=== PATIENT | female | born 1955 | race Caucasian/White ===

== ENCOUNTER 2017-10-28 12:58 | Emergency (ER) | payer MEDICARE, MEDICAID ==
[~2017-10-28] VITALS: Ht 165.1 cm; Wt 72.7 kg
[~2017-10-28 12:58] MED LIST: CLON-527 PO; GABA600T2 PO; HYDR-3972 PO; METF500T PO; TRAZ150T78 PO; VENL150C2 PO
[2017-10-28] MEDS ORDERED: normal saline 1000ML IV soln IVB ONE (13:20)
[2017-10-28 14:00] VITALS: BP 101/71
[2017-10-28 14:15] LABS: BASOPHILS % (AUTO) 0.5 % (0-1); EOSINOPHILS # (AUTO) 0.2 X10'3 (0-0.9); EOSINOPHILS % (AUTO) 4.4 % (0-6); HEMATOCRIT 39.6 % (35.0-45.0); HEMOGLOBIN 13.9 g/dl (12.0-16.0); LYMPHOCYTES # (AUTO) 1.5 X10'3 (1.1-4.8); LYMPHOCYTES % (AUTO) 25.7 % (21-51); MEAN CORPUSCULAR HEMOGLOBIN 29.7 PG (27.0-31.0); MEAN CORPUSCULAR HGB CONC 35.2 % (33.0-36.5); MEAN CORPUSCULAR VOLUME 84.3 FL (78-98); MEAN PLATELET VOLUME 7.5 FL (7.4-10.4); MONOCYTES # (AUTO) 0.5 X10'3 (0-0.9); MONOCYTES % (AUTO) 8.6 % (2-12); NEUTROPHILS # (AUTO) 3.4 X10'3 (1.8-7.7); NEUTROPHILS % (AUTO) 60.8 % (42-75); PLATELET COUNT 119 X10'3 (140-440); RED CELL DISTRIBUTION WIDTH 13.9 % (11.5-14.5); WHITE BLOOD COUNT 5.7 X10'3 (4.5-11.0)
[2017-10-28 14:25] LABS: ALANINE AMINOTRANSFERASE 64 U/L (12-78); ALBUMIN 3.7 G/DL (3.4-5.0); ALBUMIN/GLOBULIN RATIO 0.9 (1.1-1.5); ALKALINE PHOSPHATASE 63 IU/L (46-116); ANION GAP 11 (8-16); ASPARTATE AMINO TRANSFERASE 35 U/L (10-37); BILIRUBIN,TOTAL 0.3 MG/DL (0.1-1.0); BLOOD UREA NITROGEN 21 MG/DL (7-18); CALCIUM 9.8 MG/DL (8.5-10.1); CHLORIDE 101 MMOL/L (99-107); GLUCOSE 336 MG/DL (70-104); MAGNESIUM 1.8 MG/DL (1.5-2.4); PHOSPHORUS 4.4 MG/DL (2.3-4.5); POTASSIUM 4.2 MMOL/L (3.5-5.1); SODIUM 137 MMOL/L (135-145); TOTAL CARBON DIOXIDE 24.8 MMOL/L (24-32); TOTAL PROTEIN 7.9 G/DL (6.4-8.2); eGFR 56 ML/MIN
[2017-10-28 16:06] LABS: CLARITY,URINE CLEAR (Clear); COLOR,URINE YELLOW (Yellow); GLUCOSE, URINE >=1000 mg/dl (Neg); KETONES,URINE NEGATIVE (Neg); LEUKOCYTE ESTERASE ,URINE SMALL (Neg); NITRITES, URINE POSITIVE (Neg); OCCULT BLOOD,URINE SMALL (Neg); PROTEIN,URINE TRACE mg/dl (Neg); UA COLLECTION TYPE NON-SPECIFIED; UROBILINOGEN,URINE 0.2 E.U/dL (0.2-1.0)
[2017-10-28 16:13] LABS: BACTERIA,URINE 2+ /HPF (Neg); RBC,URINE 0-2 /HPF (0-2); SQUAMOUS EPITHELIAL CELL,UR FEW /LPF (FEW); WBC,URINE 50-100 /HPF (0-4)
[2017-10-28] MEDS ORDERED: NITR100C6 PO (16:43)
[2017-10-28] MEDS ORDERED: CefTRIAXone 1000mg IM Kit (w/lidocaine diluent) IM ONE (16:45)
== END 2017-10-28 17:30 | disposition home or self-care (01) ==
LOC: ER 12:59
DX: E11.65 Type 2 diabetes mellitus with hyperglycemia (principal); N39.0 Urinary tract infection, site not specified; Z79.84 Long term (current) use of oral hypoglycemic drugs; Z88.8 Allergy status to other drugs, medicaments and biological substances
CPT/HCPCS: 36415; 71045; 80053; 81001; 82330; 82948; 83735; 83880; 84100; 84484; 85025; 87077; 87088; 87186; 96372; 99285; J0696

== ENCOUNTER 2018-01-11 15:59 | Emergency (ER) | payer MEDICARE, MEDICAID ==
[~2018-01-11] VITALS: Ht 152.4 cm; Wt 72.7 kg
[~2018-01-11 15:59] MED LIST changes: +NITR100C6 PO
[2018-01-11 16:49] LABS: BASOPHILS % (AUTO) 0.4 % (0-1); EOSINOPHILS # (AUTO) 0.1 X10'3 (0-0.9); EOSINOPHILS % (AUTO) 1.8 % (0-6); HEMATOCRIT 40.2 % (35.0-45.0); HEMOGLOBIN 13.9 g/dl (12.0-16.0); LYMPHOCYTES # (AUTO) 1.7 X10'3 (1.1-4.8); LYMPHOCYTES % (AUTO) 30.1 % (21-51); MEAN CORPUSCULAR HEMOGLOBIN 28.9 PG (27.0-31.0); MEAN CORPUSCULAR HGB CONC 34.7 % (33.0-36.5); MEAN CORPUSCULAR VOLUME 83.3 FL (78-98); MEAN PLATELET VOLUME 7.2 FL (7.4-10.4); MONOCYTES # (AUTO) 0.4 X10'3 (0-0.9); MONOCYTES % (AUTO) 7.7 % (2-12); NEUTROPHILS # (AUTO) 3.3 X10'3 (1.8-7.7); PLATELET COUNT 123 X10'3 (140-440); RED BLOOD COUNT 4.82 X10'6 (4.20-5.60); RED CELL DISTRIBUTION WIDTH 13.4 % (11.5-14.5); WHITE BLOOD COUNT 5.5 X10'3 (4.5-11.0)
[2018-01-11 17:00] LABS: PARTIAL THROMBOPLASTIN TIME 23 SECONDS (22-32); PROTHROMBIN TIME 10.1 SECONDS (9.0-12.0)
[2018-01-11 17:07] LABS: ALANINE AMINOTRANSFERASE 38 U/L (12-78); ALBUMIN 3.9 G/DL (3.4-5.0); ALKALINE PHOSPHATASE 69 IU/L (46-116); ANION GAP 11 (8-16); ASPARTATE AMINO TRANSFERASE 20 U/L (10-37); BILIRUBIN,TOTAL 0.4 MG/DL (0.1-1.0); BLOOD UREA NITROGEN 14 MG/DL (7-18); BUN/CREATININE RATIO 12.1 (6.6-38.0); CALCIUM 9.4 MG/DL (8.5-10.1); CHLORIDE 98 MMOL/L (99-107); CREATININE 1.16 MG/DL (0.40-0.90); ETHANOL < 0.010 GM/DL (0.0-0.010); GLUCOSE 437 MG/DL (70-104); POTASSIUM 4.4 MMOL/L (3.5-5.1); SODIUM 136 MMOL/L (135-145); TOTAL CARBON DIOXIDE 26.9 MMOL/L (24-32); TOTAL PROTEIN 7.7 G/DL (6.4-8.2); eGFR 47 ML/MIN
[2018-01-11 17:08] LABS: ACETAMINOPHEN < 2.0 UG/ML (10-30)
[2018-01-11 18:10] LABS: CLARITY,URINE SLIGHTLY CLOUDY (Clear); COLOR,URINE YELLOW (Yellow); GLUCOSE, URINE >=1000 mg/dl (Neg); KETONES,URINE NEGATIVE (Neg); LEUKOCYTE ESTERASE ,URINE NEGATIVE (Neg); NITRITES, URINE NEGATIVE (Neg); OCCULT BLOOD,URINE LARGE (Neg); PROTEIN,URINE NEGATIVE (Neg); UROBILINOGEN,URINE 0.2 E.U/dL (0.2-1.0)
[2018-01-11] MEDS ORDERED: normal saline 1000ML IV soln IVB ONE (18:10)
[2018-01-11] MEDS ORDERED: insulin regular, human 10 units/0.1 ml syringe SQ ONE (18:10)
[2018-01-11 18:11] LABS: UA COLLECTION TYPE CLN CATCH MIDSTREAM
[2018-01-11 18:19] LABS: URINE AMPHETAMINE SCREEN NEGATIVE (Neg); URINE BARBITUATE SCREEN NEGATIVE (Neg); URINE BENZODIAZEPINES SCREEN POSITIVE (Neg); URINE CANNABINOID SCREEN NEGATIVE (Neg); URINE COCAINE SCREEN NEGATIVE (Neg); URINE METHADONE SCREEN NEGATIVE (Neg); URINE OPIATE SCREEN POSITIVE (Neg); URINE PHENCYCLIDINE SCREEN NEGATIVE (Neg)
[2018-01-11 18:23] LABS: SQUAMOUS EPITHELIAL CELL,UR MODERATE /LPF (FEW)
[2018-01-11 18:24] LABS: BACTERIA,URINE FEW /HPF (Neg); RBC,URINE 50-100 /HPF (0-2); WBC,URINE 30-50 /HPF (0-4)
[2018-01-11 21:14] VITALS: BP 141/62
[2018-01-11] MEDS ORDERED: TRAZ150T78 PO (21:46)
[2018-01-11] MEDS ORDERED: METF500T PO (21:50)
[2018-01-11] MEDS ORDERED: CHOL10002 PO (21:50)
[2018-01-11] MEDS ORDERED: INSU100V30 SQ (21:50)
[2018-01-11] MEDS ORDERED: MULT-933 PO (21:56)
[2018-01-11] MEDS ORDERED: CLIN300C17 (21:56)
[2018-01-11] MEDS ORDERED: FLUO15OI15 TOP (21:56)
[2018-01-11] MEDS ORDERED: GABA-530 PO ×2 (21:56)
[2018-01-12] MEDS ORDERED: NPH,100V SQ (15:23)
[2018-01-21] MEDS ORDERED: VENL75CA61 PO (07:47)
[2018-01-21] MEDS ORDERED: TRAZ-146 PO (07:47)
[2018-01-21] MEDS ORDERED: VENL150C2 PO (07:47)
[2018-01-21] MEDS ORDERED: NPH,100V SQ (07:47)
[2018-01-21] MEDS ORDERED: CLON1TAB4 PO (07:47)
== END 2018-01-11 23:23 | disposition home or self-care (01) ==
LOC: ER 16:00
DX: F32.9 Major depressive disorder, single episode, unspecified (principal); E11.65 Type 2 diabetes mellitus with hyperglycemia; N39.0 Urinary tract infection, site not specified; F41.9 Anxiety disorder, unspecified; Z79.899 Other long term (current) drug therapy
CPT/HCPCS: 36415; 71045; 80053; 80305; 80320; 80329; 81001; 82948; 85025; 85610; 85730; 87088; 96360; 96372; 99285; J1815; J7030; 96361

== ENCOUNTER 2022-06-23 09:39 | Outpatient (CLI) | payer MEDICARE, MEDICAID ==
[2022-06-23] VITALS (18 sets, daily range): BP systolic 78–138; BP diastolic 43–97
[~2022-06-23 09:39] MED LIST changes: -CLON-527 PO; +CLON-528 PO; +GABA600T13 PO; -GABA600T2 PO; -HYDR-3972 PO; +HYDR-4353 PO; -METF500T PO; +MULT-933 PO; +NITR100C11 PO; -NITR100C6 PO; +NPH,100V SQ; +NPH,100V2 SQ; +PRAV10TA39 PO; +TRAZ-251 PO; -TRAZ150T78 PO; -VENL150C2 PO; +VENL150C4 PO
== END 2022-06-23 23:59 | disposition home or self-care (01) ==
LOC: CARD DIAG 09:39
DX: I95.9 Hypotension, unspecified (principal)
CPT/HCPCS: 93660

== ENCOUNTER 2023-07-15 08:53 | Day surgery (SDC) | payer BC, MEDICAID ==
[2023-07-09 14:44] LABS: BASOPHILS % (AUTO) 0.2 % (0-1); EOSINOPHILS # (AUTO) 0.1 X10'3 (0-0.9); EOSINOPHILS % (AUTO) 1.6 % (0-6); LYMPHOCYTES # (AUTO) 1.3 X10'3 (1.1-4.8); LYMPHOCYTES % (AUTO) 15.8 % (21-51); MEAN CORPUSCULAR HEMOGLOBIN 30.2 PG (27.0-31.0); MEAN CORPUSCULAR VOLUME 88.8 FL (78-98); MEAN PLATELET VOLUME 7.5 FL (7.4-10.4); MONOCYTES # (AUTO) 0.5 X10'3 (0-0.9); MONOCYTES % (AUTO) 6.1 % (2-12); NEUTROPHILS % (AUTO) 76.3 % (42-75); PRE OP HEMATOCRIT 39.7 % (35.0-45.0); PRE OP HEMOGLOBIN 13.5 g/dL (12.0-16.0); PRE OP PLATELET COUNT 145 X10'3 (140-440); PRE OP WHITE BLOOD COUNT 7.9 10'3 (4.8-10.8); RED BLOOD COUNT 4.47 X10'6 (4.20-5.60)
[2023-07-09 14:49] LABS: BILIRUBIN,URINE NEGATIVE (Neg); CLARITY,URINE CLOUDY (Clear); COLOR,URINE YELLOW (Yellow); GLUCOSE, URINE 250 mg/dl (Neg); KETONES,URINE TRACE mg/dl (Neg); LEUKOCYTE ESTERASE ,URINE LARGE (Neg); NITRITES, URINE NEGATIVE (Neg); OCCULT BLOOD,URINE SMALL (Neg); PROTEIN,URINE 30 mg/dl (Neg); UROBILINOGEN,URINE 0.2 E.U/dL (0.2-1.0)
[2023-07-09 14:56] LABS: ALBUMIN 3.7 G/DL (3.4-5.0); ALBUMIN/GLOBULIN RATIO 1.1 (1.1-1.5); ALKALINE PHOSPHATASE 66 IU/L (46-116); BLOOD UREA NITROGEN 24 MG/DL (7-18); BUN/CREATININE RATIO 17.5 (10.0-20.0); CALCIUM 8.8 MG/DL (8.5-10.1); CHLORIDE 103 MMOL/L (99-107); CREATININE 1.37 MG/DL (0.40-0.90); PRE OP ALT 28 U/L (30-65); PRE OP ANION GAP 10 (8-16); PRE OP AST 24 U/L (10-37); PRE OP BILIRUB, TOTAL 0.3 MG/DL (0.0-1.0); PRE OP POTASSIUM 4.4 MMOL/L (3.4-5.1); PRE OP SODIUM 137 MMOL/L (135-145); TOTAL PROTEIN 7.1 G/DL (6.4-8.2); eGFR 38 ML/MIN
[2023-07-09 15:02] LABS: UA COLLECTION TYPE NON-SPECIFIED
[2023-07-09 15:03] LABS: BACTERIA,URINE 1+ /HPF (Neg); WBC,URINE TNTC /HPF (0-4)
[2023-07-09 15:04] LABS: MUCUS STRANDS FEW /LPF (Neg); SQUAMOUS EPITHELIAL CELL,UR MODERATE /LPF (FEW); WBC CLUMPS,URINE MODERATE /HPF (NEGATIVE)
[2023-07-09 15:23] LABS: PRE OP GLUCOSE 281 MG/DL (70-104)
[~2023-07-15] VITALS: Ht 165.1 cm; Wt 72.5 kg
[2023-07-15] VITALS (10 sets, daily range): BP systolic 88–132; BP diastolic 41–68; PULSE 74–92; RESP 10–21; TEMP 97.7; O2SAT 93–98
[~2023-07-15 08:53] MED LIST changes: +DULA3PEN SQ; +INSU100V13 SQ; +MIDO2.5T14; -MULT-933 PO; -NPH,100V SQ; +ceFOXitin 2GM-NS 100mL ADDvant 100 ML IV ONE; +famotidine 20mg tablet PO ONE; +ringers solution, lacted 1,000 ML IV SCH
[2023-07-15] MEDS ORDERED: ringers solution, lacted 1,000 ML IV SCH (09:35)
[2023-07-15] MEDS ORDERED: ondansetron/PF 4mg/2ml inj IV PRN (09:35)
[2023-07-15] MEDS ORDERED: morphine 2 MG/ML inj. syringe IV PRN (09:35)
[2023-07-15] MEDS ORDERED: morphine 4 MG/ML inj SYRINge IV PRN (09:35)
[2023-07-15] MEDS ORDERED: proCHLORperazine 10 MG/2 ml inj IV PRN (09:35)
[2023-07-15] MEDS ORDERED: meperidine/PF 25mg/ml syringe IV PRN ×3 (09:35)
[2023-07-15] MEDS ORDERED: sevoflurane 250ml liquid IH ONE (10:11)
[2023-07-15] MEDS ORDERED: fentaNYL/PF 50MCG/1 ML 2ML syringe ONE (10:14)
[2023-07-15] MEDS ORDERED: propofol inj 20 ML IV ONE (10:16)
[2023-07-15] MEDS ORDERED: midazolam 1 mg/ML 2ml injection ONE (10:16)
[2023-07-15] MEDS ORDERED: acetaminophen 1,000mg/100ml IV 100 ML IV ONE (10:36)
[2023-07-15] MEDS ORDERED: gelatin sponge, absorbable (Gelfoam 100) sponge TP ONE (10:44)
--- NOTE | 2023-07-15 11:06 | NUR ---
Received from OR via PATI, accompanied by Anesthesiologist and report given by MIKA Anesthesiologist. PATIENT ALERT & AWAKE, DENIES PAIN, V/S WNL, PIV TO RIGHT AC, PERIPAD WITHOUT DRAINAGE. Addendum: 07/15/23 at 1119 by Wilberto Cooper RN Amended: Links added.
--- NOTE | 2023-07-15 12:26 | NUR ---
ALL DISCHARGE CRITERIA HAS BEEN MET. VSS, PAIN AT A TOLERABLE LEVEL, ABLE TO SAFELY AMBULATE AND TRANSFER SELF. IV TAKEN OUT WITHOUT ANY COMPLICATIONS. ALL DISCHARGE INSTRUCTIONS COVERED WITH PATIENT AND ALL QUESTIONS ANSWERED. PATIENT TAKEN OUT VIA WHEELCHAIR WITH ALL BELONGINGS TO PERSONAL VEHICLE WHERE FRIEND DROVE PATIENT HOME. Addendum: 07/15/23 at 1244 by Wilberto Cooper RN Amended: Links added.
[2023-07-15] MEDS ORDERED: VENL150C4 PO (14:32)
== END 2023-07-15 12:26 | disposition home or self-care (01) ==
LOC: PAS 08:53
PROVIDERS: ATTEND Obstetrics & Gynecology Obstetrics
DX: N95.0 Postmenopausal bleeding (principal); C52 Malignant neoplasm of vagina; N84.3 Polyp of vulva; N89.8 Other specified noninflammatory disorders of vagina; N90.89 Other specified noninflammatory disorders of vulva and perineum; F41.9 Anxiety disorder, unspecified; E11.9 Type 2 diabetes mellitus without complications; F32.A Depression, unspecified; Z79.899 Other long term (current) drug therapy; Z88.2 Allergy status to sulfonamides; Z88.7 Allergy status to serum and vaccine
CPT/HCPCS: 36415; 56605; 57100; 71046; 80053; 81001; 82948; 85025; 87088; 93005; J0131; J0694; J2175; J2250; J2704; J3010; J7030; J7120; Z7506; Z7512; A4355; A4618; A6258; A7000

== ENCOUNTER 2023-08-29 11:32 | Emergency (ER) | payer BC, MEDICAID ==
[~2023-08-29] VITALS: Ht 165.1 cm; Wt 72.7 kg
[~2023-08-29 11:32] MED LIST changes: +LEVO-65 PO; -NITR100C11 PO; -ceFOXitin 2GM-NS 100mL ADDvant 100 ML IV ONE; -famotidine 20mg tablet PO ONE; -ringers solution, lacted 1,000 ML IV SCH
[2023-08-29 13:10] VITALS: TEMP 98.7; O2SAT 97
[2023-08-29 13:46] LABS: BASOPHILS # (AUTO) 0.1 X10'3 (0-0.2); BASOPHILS % (AUTO) 1.4 % (0-1); EOSINOPHILS # (AUTO) 0.6 X10'3 (0-0.9); EOSINOPHILS % (AUTO) 17.2 % (0-6); HEMATOCRIT 36.8 % (35.0-45.0); HEMOGLOBIN 12.3 g/dl (12.0-16.0); LYMPHOCYTES # (AUTO) 0.6 X10'3 (1.1-4.8); LYMPHOCYTES % (AUTO) 16.6 % (21-51); MEAN CORPUSCULAR HEMOGLOBIN 29.2 PG (27.0-31.0); MEAN CORPUSCULAR HGB CONC 33.3 g/dL (33.0-36.5); MEAN CORPUSCULAR VOLUME 87.7 FL (78-98); MEAN PLATELET VOLUME 7.4 FL (7.4-10.4); MONOCYTES # (AUTO) 0.4 X10'3 (0-0.9); MONOCYTES % (AUTO) 12.3 % (2-12); NEUTROPHILS # (AUTO) 1.9 X10'3 (1.8-7.7); NEUTROPHILS % (AUTO) 52.5 % (42-75); PLATELET COUNT 103 X10'3 (140-440); RED CELL DISTRIBUTION WIDTH 15.7 % (11.5-14.5); WHITE BLOOD COUNT 3.6 X10'3 (4.5-11.0)
[2023-08-29 14:06] LABS: ALANINE AMINOTRANSFERASE 28 U/L (12-78); ALBUMIN 3.3 G/DL (3.4-5.0); ALBUMIN/GLOBULIN RATIO 0.8 (1.1-1.5); ALKALINE PHOSPHATASE 62 IU/L (46-116); ANION GAP 9 (8-16); ASPARTATE AMINO TRANSFERASE 24 U/L (10-37); BILIRUBIN,TOTAL 0.3 MG/DL (0.1-1.0); BLOOD UREA NITROGEN 22 MG/DL (7-18); BUN/CREATININE RATIO 21.2 (10.0-20.0); CHLORIDE 105 MMOL/L (99-107); CREATININE 1.04 MG/DL (0.40-0.90); GLUCOSE 160 MG/DL (70-104); POTASSIUM 4.6 MMOL/L (3.5-5.1); SODIUM 140 MMOL/L (135-145); TOTAL PROTEIN 7.3 G/DL (6.4-8.2); eCRCL 47 ML/MIN; eGFR 53 ML/MIN
[2023-08-29 14:11] LABS: PRO BRAIN NATRIURETIC PEPTIDE 487 PG/ML (0-125)
[2023-08-29 15:46] VITALS: BP 93/43; PULSE 84; RESP 16
[2023-08-31] MEDS ORDERED: TRAZ150T78 PO (18:48)
[2023-08-31] MEDS ORDERED: ATOR40TA72 PO (18:48)
[2023-08-31] MEDS ORDERED: HYDR-3973 PO (18:48)
[2023-08-31] MEDS ORDERED: MIDO2.5T14 PO (18:57)
== END 2023-08-29 20:06 | disposition left against medical advice (07) ==
LOC: ER 11:32
DX: R05.9 Cough, unspecified (principal); Z53.21 Procedure and treatment not carried out due to patient leaving prior to being seen by health care provider
CPT/HCPCS: 36415; 71046; 80053; 82948; 83605; 83880; 85025; 87040; 99281

== ENCOUNTER 2023-12-27 20:47 | Inpatient (IN) | payer BC, MEDICAID ==
[~2023-12-27] VITALS: Ht 162.6 cm; Wt 72.0 kg
[~2023-12-27 20:47] MED LIST changes: +ATOR40TA72 PO; +BUDE90AE INH; -CLON-528 PO; +CLON-850 PO; +FLO0.1T PO; +HYDR-3973 PO; -HYDR-4353 PO; -LEVO-65 PO; -MIDO2.5T14; +MIDO5TAB4 PO; -PRAV10TA39 PO; +TRAZ150T78 PO; -VENL150C4 PO; +VENL150C5 PO
[2023-12-27 21:11] LABS: EOSINOPHILS % (AUTO) 0 % (0-6); MEAN PLATELET VOLUME 7.4 FL (7.4-10.4); MONOCYTES # (AUTO) 0.5 X10'3 (0-0.9); NEUTROPHILS # (AUTO) 3.8 X10'3 (1.8-7.7)
[2023-12-27 21:12] LABS: BASOPHILS % (AUTO) 0.3 % (0-1); HEMATOCRIT 23.8 % (35.0-45.0); HEMOGLOBIN 8.2 g/dl (12.0-16.0); LYMPHOCYTES # (AUTO) 0.2 X10'3 (1.1-4.8); MEAN CORPUSCULAR HEMOGLOBIN 32.4 PG (27.0-31.0); MEAN CORPUSCULAR HGB CONC 34.6 g/dL (33.0-36.5); MEAN CORPUSCULAR VOLUME 93.8 FL (78-98); MONOCYTES % (AUTO) 10.9 % (2-12); NEUTROPHILS % (AUTO) 84.8 % (42-75); PLATELET COUNT 76 X10'3 (140-440); RED BLOOD COUNT 2.54 X10'6 (4.20-5.60); RED CELL DISTRIBUTION WIDTH 17.5 % (11.5-14.5); WHITE BLOOD COUNT 4.5 X10'3 (4.5-11.0)
[2023-12-27] MEDS: acetaminophen 325mg tablet PO ONE ×2 (21:12→21:47)
[2023-12-27] MEDS: normal saline 1000ML IV soln IVB ONE (21:22)
[2023-12-27 21:26] LABS: ALBUMIN 2.8 G/DL (3.4-5.0); ANION GAP 14 (8-16); BLOOD UREA NITROGEN 19 MG/DL (7-18); BUN/CREATININE RATIO 16.8 (10.0-20.0); CALCIUM 8.2 MG/DL (8.5-10.1); CHLORIDE 96 MMOL/L (99-107); CREATININE 1.13 MG/DL (0.40-0.90); GLUCOSE 362 MG/DL (70-104); POTASSIUM 3.3 MMOL/L (3.5-5.1); SODIUM 131 MMOL/L (135-145); TOTAL CARBON DIOXIDE 21.5 MMOL/L (24-32); eCRCL 42 ML/MIN; eGFR 48 ML/MIN
[2023-12-27] MEDS ORDERED: midodrine tablet 2.5 MG TABLET PO STA (21:40)
[2023-12-27] MEDS: midodrine 5mg tablet PO STA (21:53)
[2023-12-27 22:00] LABS: BILIRUBIN,URINE NEGATIVE (Neg); COLOR,URINE YELLOW (Yellow); GLUCOSE, URINE >=1000 mg/dl (Neg); KETONES,URINE 40 mg/dl (Neg); LEUKOCYTE ESTERASE ,URINE NEGATIVE (Neg); NITRITES, URINE NEGATIVE (Neg); OCCULT BLOOD,URINE MODERATE (Neg); PROTEIN,URINE 100 mg/dl (Neg); UROBILINOGEN,URINE 0.2 E.U/dL (0.2-1.0)
[2023-12-27 22:06] LABS: CLARITY,URINE SLIGHTLY CLOUDY (Clear); UA COLLECTION TYPE CLN CATCH MIDSTREAM
[2023-12-27] MEDS: piperacillin/tazo 3.375gm/50ml 50 ML IV SCH (22:06)
[2023-12-27 22:09] LABS: AMORPHOUS URATES 3+; BACTERIA,URINE 1+ /HPF (Neg); MUCUS STRANDS FEW /LPF (Neg); SQUAMOUS EPITHELIAL CELL,UR FEW /LPF (FEW); WBC,URINE 0-4 /HPF (0-4)
[2023-12-27 22:10] LABS: COARSE GRANULAR CAST 0-3 /LPF (NEGATIVE); FINE GRANULAR CAST 0-3 /LPF (NEGATIVE)
[2023-12-27 22:22] LABS: ANISOCYTOSIS 1+; PLATELET ESTIMATE DECREASED; TOTAL CELLS COUNTED 100
[2023-12-27] MEDS: normal saline 1000ml 1,000 ML IV ONE (22:44)
[2023-12-28] VITALS (7 sets, daily range): BP systolic 92–98; BP diastolic 31–43; PULSE 63–91; RESP 18; TEMP 98–102.2; O2SAT 93–95
[2023-12-28] MEDS: normal saline 1000ml 1,000 ML IV ONE (00:38)
[2023-12-28] MEDS ORDERED: dextrose 50%-water 50ml dispensing syringe IV PRN ×2 (01:15)
[2023-12-28] MEDS ORDERED: DEXTROSE 15 GM of carb/4 tabs (each vial/BOTTLE has 4 tablets) PO PRN ×2 (01:15)
[2023-12-28] MEDS ORDERED: glucagon, human recombinant 1mg kit SUBCUT PRN (01:15)
[2023-12-28] MEDS ORDERED: magnesium 2GM in 50ml NS 50 ML IV PRN (01:40)
[2023-12-28] MEDS ORDERED: magnesium 4gm in 100ml NS 100 ML IV PRN (01:40)
[2023-12-28] MEDS ORDERED: potassium Cl 40MEQ/1/2NS 520ml 520 ML IV PRN (01:40)
[2023-12-28] MEDS ORDERED: magnesium Cl slow-release 64mg tablet PO PRN (01:40)
[2023-12-28] MEDS ORDERED: potassium Cl 20 mEq SR tablet PO PRN (01:40)
[2023-12-28] MEDS ORDERED: clonazePAM 0.5mg tablet PO SCH (02:35)
[2023-12-28] MEDS: clonazePAM 0.5mg tablet PO ONE (02:48)
[2023-12-28] MEDS: vancomycin/NS 1 GM ADD-VANTAGE 250 ML X 1 DOSE IV ONE (02:51)
[2023-12-28] MEDS: acetaminophen 325mg tablet PO PRN (04:13)
[2023-12-28] MEDS: normal saline 1000ml 1,000 ML IV SCH (04:25)
[2023-12-28] MEDS: insulin Lispro (HumaLOG) vial - multi-dose SQ ONE ×2 (05:04→22:56)
[2023-12-28] MEDS: piperacillin/tazo 4.5gm/100ml 100 ML IV SCH (05:30)
[2023-12-28] MEDS ORDERED: ONDA8TAB13 PO (05:49)
[2023-12-28] MEDS ORDERED: PROC-8 PO (05:49)
[2023-12-28] MEDS ORDERED: DIPH-186 PO (05:49)
[2023-12-28] MEDS ORDERED: VENL37.59 PO (05:49)
[2023-12-28 06:50] LABS: MAGNESIUM 1.5 MG/DL (1.5-2.4)
[2023-12-28] MEDS: heparin, porcine 5000 units/ml vial SQ SCH (08:00)
[2023-12-28] MEDS: K and/or MAG REPLACEMENT MC SCH (08:00)
[2023-12-28 08:37] LABS: C DIFF ANTIGEN NEGATIVE (NEGATIVE); C DIFF SPECIMEN=DIARRHEA? ACCEPTABLE; C DIFFICILE TOXINS A&B NEGATIVE (Neg)
[2023-12-28 09:48] LABS: EOSINOPHILS % (AUTO) 0 % (0-6); LYMPHOCYTES # (AUTO) 0.1 X10'3 (1.1-4.8); MEAN CORPUSCULAR HEMOGLOBIN 32.3 PG (27.0-31.0); WHITE BLOOD COUNT 3.6 X10'3 (4.5-11.0)
[2023-12-28 09:50] LABS: BASOPHILS % (AUTO) 0.2 % (0-1); HEMATOCRIT 22.3 % (35.0-45.0); HEMOGLOBIN 7.3 g/dl (12.0-16.0); LYMPHOCYTES % (AUTO) 2.9 % (21-51); MEAN CORPUSCULAR VOLUME 97.7 FL (78-98); MEAN PLATELET VOLUME 7.9 FL (7.4-10.4); MONOCYTES # (AUTO) 0.5 X10'3 (0-0.9); MONOCYTES % (AUTO) 13.3 % (2-12); NEUTROPHILS % (AUTO) 83.6 % (42-75); PLATELET COUNT 65 X10'3 (140-440); RED BLOOD COUNT 2.28 X10'6 (4.20-5.60); RED CELL DISTRIBUTION WIDTH 18.1 % (11.5-14.5)
[2023-12-28] MEDS: insulin Lispro (HumaLOG) vial - multi-dose SQ SCH (09:50)
[2023-12-28 09:51] LABS: ALBUMIN 2.4 G/DL (3.4-5.0); BLOOD UREA NITROGEN 15 MG/DL (7-18); BUN/CREATININE RATIO 13.6 (10.0-20.0); CALCIUM 7.1 MG/DL (8.5-10.1); GLUCOSE 364 MG/DL (70-104); TOTAL CARBON DIOXIDE 18.5 MMOL/L (24-32); eCRCL 43 ML/MIN; eGFR 50 ML/MIN
[2023-12-28 09:52] LABS: ANION GAP 12 (8-16); CHLORIDE 101 MMOL/L (99-107); SODIUM 131 MMOL/L (135-145)
[2023-12-28 09:54] LABS: POTASSIUM 2.9 MMOL/L (3.5-5.1)
[2023-12-28] MEDS: potassium Cl 20 mEq SR tablet PO PRN (10:06)
[2023-12-28 10:16] LABS: ANISOCYTOSIS 2+; PLATELET ESTIMATE DECREASED
[2023-12-28 10:17] LABS: POLYCHROMASIA 1+; TEAR DROP CELLS FEW
[2023-12-28 10:18] LABS: BURR CELLS FEW
[2023-12-28] MEDS: clonazePAM 0.5mg tablet PO PRN (11:31)
[2023-12-28] MEDS: loperamide 2mg capsule PO PRN (14:27)
[2023-12-28] MEDS: midodrine 5mg tablet PO SCH (16:45)
[2023-12-28] MEDS ORDERED: insulin glargine (Lantus) pen - multi-dose SQ SCH ×2 (21:00)
[2023-12-28] MEDS: traZODone 150mg tablet PO PRN (23:02)
[2023-12-29] VITALS (10 sets, daily range): BP systolic 93–120; BP diastolic 40–53; PULSE 65–96; RESP 12–20; TEMP 97.8–100; O2SAT 94–97
[2023-12-29 00:54] LABS: ALANINE AMINOTRANSFERASE 28 U/L (12-78); ALBUMIN 2.1 G/DL (3.4-5.0); ALBUMIN/GLOBULIN RATIO 0.7 (1.1-1.5); ALKALINE PHOSPHATASE 32 IU/L (46-116); ANION GAP 12 (8-16); ASPARTATE AMINO TRANSFERASE 41 U/L (10-37); BILIRUBIN,TOTAL 0.6 MG/DL (0.1-1.0); BLOOD UREA NITROGEN 13 MG/DL (7-18); BUN/CREATININE RATIO 12.4 (10.0-20.0); CALCIUM 7.2 MG/DL (8.5-10.1); CHLORIDE 107 MMOL/L (99-107); CREATININE 1.05 MG/DL (0.40-0.90); GLUCOSE 291 MG/DL (70-104); POTASSIUM 3.9 MMOL/L (3.5-5.1); SODIUM 137 MMOL/L (135-145); TOTAL CARBON DIOXIDE 18.3 MMOL/L (24-32); TOTAL PROTEIN 5.2 G/DL (6.4-8.2); eCRCL 45 ML/MIN; eGFR 52 ML/MIN
[2023-12-29] MEDS: vancomycin/NS 1 GM ADD-VANTAGE 250 ML IV SCH (03:55)
[2023-12-29 06:51] LABS: LYMPHOCYTES # (AUTO) 0.2 X10'3 (1.1-4.8); MONOCYTES # (AUTO) 0.5 X10'3 (0-0.9); NEUTROPHILS # (AUTO) 2.3 X10'3 (1.8-7.7)
[2023-12-29 06:54] LABS: BASOPHILS % (AUTO) 0.2 % (0-1); EOSINOPHILS % (AUTO) 0.4 % (0-6); LYMPHOCYTES % (AUTO) 6.8 % (21-51); MEAN CORPUSCULAR HEMOGLOBIN 31.7 PG (27.0-31.0); MEAN CORPUSCULAR HGB CONC 33.5 g/dL (33.0-36.5); MEAN CORPUSCULAR VOLUME 94.6 FL (78-98); MEAN PLATELET VOLUME 8.5 FL (7.4-10.4); MONOCYTES % (AUTO) 15.4 % (2-12); NEUTROPHILS % (AUTO) 77.2 % (42-75); PLATELET COUNT 67 X10'3 (140-440); RED CELL DISTRIBUTION WIDTH 17.6 % (11.5-14.5)
[2023-12-29 06:58] LABS: HEMATOCRIT 20.8 % (35.0-45.0)
[2023-12-29 07:28] LABS: NUCLEATED RED BLOOD CELLS 1 /100WBC (0-0); TOTAL CELLS COUNTED 100
[2023-12-29 07:29] LABS: ANISOCYTOSIS 1+; ELLIPTOCYTES FEW; PLATELET ESTIMATE DECREASED; TEAR DROP CELLS FEW
[2023-12-29 07:30] LABS: BURR CELLS 5
[2023-12-29] MEDS: venlafaxine XR 75mg capsule (Q24H) PO SCH (08:59)
[2023-12-29] MEDS: atorvastatin 20mg tablet PO SCH (09:00)
[2023-12-29 10:21] LABS: % IRON SATURATION 16 % (11-46); IRON 16 UG/DL (49-151); TOTAL IRON BINDING CAPACITY 97 UG/DL (259-388)
[2023-12-29] MEDS: insulin Lispro (HumaLOG) vial - multi-dose SQ SCH (12:00)
[2023-12-29] MEDS: acetaminophen 325mg tablet PO PRN (13:56)
[2023-12-29] MEDS: JUVEN Smoothie Arginine/Glut./Ca2+Bmb (Juven 19.3pkt) 240ml cup PO SCH (17:30)
[2023-12-29] MEDS: methylPREDNISolone sod succ 125mg/2ml vial IV SCH (19:28)
[2023-12-30] VITALS (9 sets, daily range): BP systolic 106–127; BP diastolic 52–66; PULSE 61–86; RESP 13–20; TEMP 97.1–98.1; O2SAT 92–97
[2023-12-30 06:05] LABS: BASOPHILS % (AUTO) 0.1 % (0-1); EOSINOPHILS % (AUTO) 0.3 % (0-6); LYMPHOCYTES # (AUTO) 0.2 X10'3 (1.1-4.8); LYMPHOCYTES % (AUTO) 5.5 % (21-51); MEAN CORPUSCULAR HEMOGLOBIN 31.5 PG (27.0-31.0); MEAN CORPUSCULAR HGB CONC 33.3 g/dL (33.0-36.5); MEAN CORPUSCULAR VOLUME 94.6 FL (78-98); MEAN PLATELET VOLUME 8.5 FL (7.4-10.4); MONOCYTES # (AUTO) 0.1 X10'3 (0-0.9); MONOCYTES % (AUTO) 3.2 % (2-12); NEUTROPHILS # (AUTO) 3.1 X10'3 (1.8-7.7); NEUTROPHILS % (AUTO) 90.9 % (42-75); PLATELET COUNT 90 X10'3 (140-440); RED BLOOD COUNT 2.54 X10'6 (4.20-5.60); RED CELL DISTRIBUTION WIDTH 17.7 % (11.5-14.5); WHITE BLOOD COUNT 3.4 X10'3 (4.5-11.0)
[2023-12-30 06:09] LABS: ALBUMIN 2.2 G/DL (3.4-5.0); ANION GAP 13 (8-16); BLOOD UREA NITROGEN 16 MG/DL (7-18); BUN/CREATININE RATIO 18.8 (10.0-20.0); CALCIUM 7.9 MG/DL (8.5-10.1); CHLORIDE 106 MMOL/L (99-107); CREATININE 0.85 MG/DL (0.40-0.90); GLUCOSE 332 MG/DL (70-104); MAGNESIUM 1.8 MG/DL (1.5-2.4); POTASSIUM 4.6 MMOL/L (3.5-5.1); SODIUM 137 MMOL/L (135-145); TOTAL CARBON DIOXIDE 18.3 MMOL/L (24-32); eCRCL 55 ML/MIN; eGFR 67 ML/MIN
[2023-12-30 07:09] LABS: PLATELET ESTIMATE DECREASED
[2023-12-30 07:10] LABS: ANISOCYTOSIS 1+; LARGE PLATELETS FEW; TEAR DROP CELLS 1+
[2023-12-30 07:13] LABS: ROULEAUX 1+
[2023-12-30] MEDS: insulin Lispro (HumaLOG) vial - multi-dose SQ SCH (09:47)
[2023-12-30] MEDS: HYDROcodone/acetaminophen 10/325mg tab PO PRN (09:50)
[2023-12-30] MEDS ORDERED: iohexol 300mg/ml 100ml inj. ONE (11:05)
[2023-12-30] MEDS: insulin Lispro (HumaLOG) vial - multi-dose SQ ONE (21:16)
[2023-12-31 03:01] LABS: BASOPHILS % (AUTO) 0 % (0-1); EOSINOPHILS % (AUTO) 0 % (0-6); HEMATOCRIT 22.8 % (35.0-45.0); HEMOGLOBIN 7.7 g/dl (12.0-16.0); LYMPHOCYTES # (AUTO) 0.2 X10'3 (1.1-4.8); LYMPHOCYTES % (AUTO) 4.7 % (21-51); MEAN CORPUSCULAR HEMOGLOBIN 31.9 PG (27.0-31.0); MEAN CORPUSCULAR VOLUME 93.8 FL (78-98); MEAN PLATELET VOLUME 8.2 FL (7.4-10.4); MONOCYTES # (AUTO) 0.5 X10'3 (0-0.9); MONOCYTES % (AUTO) 10.1 % (2-12); NEUTROPHILS # (AUTO) 4.2 X10'3 (1.8-7.7); NEUTROPHILS % (AUTO) 85.2 % (42-75); PLATELET COUNT 135 X10'3 (140-440); RED BLOOD COUNT 2.43 X10'6 (4.20-5.60); RED CELL DISTRIBUTION WIDTH 17.9 % (11.5-14.5); WHITE BLOOD COUNT 4.9 X10'3 (4.5-11.0)
[2023-12-31 03:09] LABS: ALBUMIN 2.1 G/DL (3.4-5.0); ANION GAP 10 (8-16); BLOOD UREA NITROGEN 28 MG/DL (7-18); BUN/CREATININE RATIO 32.2 (10.0-20.0); CALCIUM 8.4 MG/DL (8.5-10.1); CHLORIDE 107 MMOL/L (99-107); CREATININE 0.87 MG/DL (0.40-0.90); MAGNESIUM 2.1 MG/DL (1.5-2.4); POTASSIUM 4.4 MMOL/L (3.5-5.1); SODIUM 137 MMOL/L (135-145); TOTAL CARBON DIOXIDE 20.2 MMOL/L (24-32); VANCOMYCIN,TROUGH 7.1 ug/mL (10.0-20.0); eCRCL 54 ML/MIN; eGFR 65 ML/MIN
[2023-12-31] MEDS: VANCOMYCIN LEVEL IV ONE (03:12)
[2023-12-31 03:27] LABS: GLUCOSE 426 MG/DL (70-104)
[2023-12-31 04:16] LABS: NUCLEATED RED BLOOD CELLS 1 /100WBC (0-0); TOTAL CELLS COUNTED 100
[2023-12-31] MEDS: insulin Lispro (HumaLOG) vial - multi-dose SQ ONE (04:16)
[2023-12-31 04:17] LABS: ANISOCYTOSIS 1+; PLATELET ESTIMATE DECREASED
[2023-12-31 04:18] LABS: TEAR DROP CELLS FEW
[2023-12-31 06:33] VITALS: BP 114/67; PULSE 87; RESP 14; TEMP 98.5; O2SAT 96
[2023-12-31] MEDS ORDERED: insulin Lispro (HumaLOG) vial - multi-dose SQ ONE (07:00)
[2023-12-31] MEDS: DULAGLUTIDE 3 MG SQ SCH (08:30)
[2023-12-31 09:15] VITALS: RESP 18; O2SAT 93
[2023-12-31 10:00] VITALS: BP 112/60; PULSE 71; RESP 18; TEMP 98.1; O2SAT 93
[2023-12-31] MEDS ORDERED: non-formulary drug (Insulin Aspart (Novolog) 10 UNITS) SQ SCH (12:00)
[2023-12-31] MEDS: lactose-reduced food (Ensure Enlive) - 237ml bottle PO SCH (13:00)
[2023-12-31] MEDS: vancomycin/NS 1 GM ADD-VANTAGE 250 ML IV SCH (15:18)
[2023-12-31 18:00] VITALS: BP 111/57; PULSE 86; RESP 17; TEMP 97.4; O2SAT 95
[2023-12-31 20:00] VITALS: RESP 17; O2SAT 95
[2023-12-31] MEDS ORDERED: non-formulary drug (Gabapentin 1 TAB) PO SCH (20:00)
[2023-12-31] MEDS ORDERED: NPH, human insulin isophane inj. SQ SCH ×2 (20:00)
[2023-12-31] MEDS ORDERED: NPH HUMAN INSULIN ISOPHANE SQ SCH (20:06)
[2023-12-31] MEDS: gabapentin 300mg capsule PO SCH (20:11)
[2023-12-31] MEDS: NPH, human insulin isophane inj. SQ ONE (20:25)
[2023-12-31 22:00] VITALS: BP 135/65; PULSE 74; RESP 18; TEMP 97.6; O2SAT 93
[2023-12-31] MEDS: insulin Lispro (HumaLOG) vial - multi-dose SQ SCH (22:48)
[2024-01-01 05:59] LABS: BASOPHILS % (AUTO) 0.1 % (0-1); EOSINOPHILS % (AUTO) 0.2 % (0-6); HEMATOCRIT 22.3 % (35.0-45.0); HEMOGLOBIN 7.6 g/dl (12.0-16.0); LYMPHOCYTES # (AUTO) 0.5 X10'3 (1.1-4.8); MEAN CORPUSCULAR HEMOGLOBIN 32.1 PG (27.0-31.0); MEAN CORPUSCULAR HGB CONC 34.1 g/dL (33.0-36.5); MEAN CORPUSCULAR VOLUME 94.3 FL (78-98); MONOCYTES # (AUTO) 0.9 X10'3 (0-0.9); MONOCYTES % (AUTO) 14.3 % (2-12); NEUTROPHILS # (AUTO) 5.2 X10'3 (1.8-7.7); NEUTROPHILS % (AUTO) 78.4 % (42-75); PLATELET COUNT 145 X10'3 (140-440); RED BLOOD COUNT 2.36 X10'6 (4.20-5.60); RED CELL DISTRIBUTION WIDTH 17.7 % (11.5-14.5); WHITE BLOOD COUNT 6.6 X10'3 (4.5-11.0)
[2024-01-01 06:01] LABS: ALBUMIN 2.1 G/DL (3.4-5.0); ANION GAP 7 (8-16); BLOOD UREA NITROGEN 28 MG/DL (7-18); BUN/CREATININE RATIO 32.9 (10.0-20.0); CALCIUM 8.2 MG/DL (8.5-10.1); CHLORIDE 108 MMOL/L (99-107); CREATININE 0.85 MG/DL (0.40-0.90); GLUCOSE 309 MG/DL (70-104); POTASSIUM 3.5 MMOL/L (3.5-5.1); SODIUM 139 MMOL/L (135-145); TOTAL CARBON DIOXIDE 23.7 MMOL/L (24-32); eCRCL 55 ML/MIN; eGFR 67 ML/MIN
[2024-01-01 07:16] VITALS: BP 127/69; PULSE 54; RESP 16; TEMP 98; O2SAT 93
[2024-01-01] MEDS: NPH, human insulin isophane inj. SQ SCH (08:42)
[2024-01-01 09:30] VITALS: RESP 17; O2SAT 96
[2024-01-01 10:00] VITALS: BP 118/72; PULSE 77; RESP 17; TEMP 97; O2SAT 92
[2024-01-01] MEDS: VANCOMYCIN LEVEL IV ONE (15:01)
[2024-01-01] MEDS: polyethylene glycol 3350 17gm powd pack PO PRN (16:30)
[2024-01-01 18:00] VITALS: BP 123/63; PULSE 81; RESP 17; TEMP 97.8; O2SAT 91
[2024-01-01] MEDS ORDERED: polyethylene glycol 3350 17gm powd pack PO SCH (21:00)
[2024-01-01 22:00] VITALS: BP 98/50; PULSE 80; RESP 16; TEMP 98.1; O2SAT 93
[2024-01-02 06:00] VITALS: BP 135/58; PULSE 73; RESP 18; TEMP 99.2; O2SAT 95
[2024-01-02 06:20] LABS: BASOPHILS % (AUTO) 0.2 % (0-1); EOSINOPHILS # (AUTO) 0.1 X10'3 (0-0.9); EOSINOPHILS % (AUTO) 0.7 % (0-6); HEMOGLOBIN 7.4 g/dl (12.0-16.0); LYMPHOCYTES # (AUTO) 0.6 X10'3 (1.1-4.8); LYMPHOCYTES % (AUTO) 9.3 % (21-51); MEAN CORPUSCULAR HEMOGLOBIN 31.9 PG (27.0-31.0); MEAN PLATELET VOLUME 7.5 FL (7.4-10.4); MONOCYTES # (AUTO) 0.7 X10'3 (0-0.9); MONOCYTES % (AUTO) 10.7 % (2-12); NEUTROPHILS # (AUTO) 5.5 X10'3 (1.8-7.7); NEUTROPHILS % (AUTO) 79.1 % (42-75); PLATELET COUNT 113 X10'3 (140-440); RED BLOOD COUNT 2.33 X10'6 (4.20-5.60); RED CELL DISTRIBUTION WIDTH 17.5 % (11.5-14.5)
[2024-01-02 06:24] LABS: ALBUMIN 1.9 G/DL (3.4-5.0); ANION GAP 6 (8-16); BLOOD UREA NITROGEN 21 MG/DL (7-18); BUN/CREATININE RATIO 26.6 (10.0-20.0); C-REACTIVE PROTEIN 5.66 MG/DL (0.0-0.5); CALCIUM 7.6 MG/DL (8.5-10.1); CHLORIDE 110 MMOL/L (99-107); CREATININE 0.79 MG/DL (0.40-0.90); GLUCOSE 109 MG/DL (70-104); POTASSIUM 3.5 MMOL/L (3.5-5.1); SODIUM 143 MMOL/L (135-145); TOTAL CARBON DIOXIDE 26.6 MMOL/L (24-32); eCRCL 60 ML/MIN; eGFR 73 ML/MIN
[2024-01-02 06:43] LABS: HEMATOCRIT 21.9 % (35.0-45.0)
[2024-01-02 09:58] LABS: NUCLEATED RED BLOOD CELLS 3 /100WBC (0-0); TOTAL CELLS COUNTED 100
[2024-01-02 10:00] VITALS: BP 117/67; PULSE 85; RESP 16; TEMP 98.6; O2SAT 90
[2024-01-02 10:00] LABS: ANISOCYTOSIS 1+; PLATELET ESTIMATE DECREASED; POLYCHROMASIA 1+; SPHEROCYTES FEW; TEAR DROP CELLS 2+
[2024-01-02] MEDS: JUVEN Smoothie Arginine/Glut./Ca2+Bmb (Juven 19.3pkt) 240ml cup PO SCH (17:30)
[2024-01-02 18:00] VITALS: BP 107/47; PULSE 86; RESP 16; TEMP 99.8; O2SAT 87
[2024-01-02] MEDS: lactose-reduced food (Ensure Enlive) - 237ml bottle PO SCH (18:00)
[2024-01-02 18:30] VITALS: O2SAT 82
[2024-01-02 18:31] VITALS: O2SAT 93
[2024-01-02 22:00] VITALS: BP 108/48; PULSE 89; RESP 14; TEMP 97.5; O2SAT 93
[2024-01-03 06:00] VITALS: BP 115/57; PULSE 83; RESP 14; TEMP 96.6; O2SAT 93
[2024-01-03 06:37] LABS: ALBUMIN 1.9 G/DL (3.4-5.0); ANION GAP 8 (8-16); BLOOD UREA NITROGEN 17 MG/DL (7-18); BUN/CREATININE RATIO 23.9 (10.0-20.0); CALCIUM 7.5 MG/DL (8.5-10.1); CHLORIDE 106 MMOL/L (99-107); CREATININE 0.71 MG/DL (0.40-0.90); GLUCOSE 205 MG/DL (70-104); POTASSIUM 3.8 MMOL/L (3.5-5.1); SODIUM 139 MMOL/L (135-145); TOTAL CARBON DIOXIDE 25.1 MMOL/L (24-32); eCRCL 66 ML/MIN; eGFR 82 ML/MIN
[2024-01-03 08:54] LABS: EOSINOPHILS # (AUTO) 0.1 X10'3 (0-0.9); LYMPHOCYTES # (AUTO) 0.4 X10'3 (1.1-4.8); MEAN CORPUSCULAR HEMOGLOBIN 31.7 PG (27.0-31.0); MEAN CORPUSCULAR HGB CONC 33.5 g/dL (33.0-36.5); MEAN CORPUSCULAR VOLUME 94.7 FL (78-98); MONOCYTES # (AUTO) 0.6 X10'3 (0-0.9); NEUTROPHILS # (AUTO) 5.5 X10'3 (1.8-7.7); PLATELET COUNT 107 X10'3 (140-440)
[2024-01-03 08:56] LABS: BASOPHILS % (AUTO) 0.2 % (0-1); HEMATOCRIT 22.9 % (35.0-45.0); HEMOGLOBIN 7.7 g/dl (12.0-16.0); LYMPHOCYTES % (AUTO) 5.4 % (21-51); MEAN PLATELET VOLUME 8.2 FL (7.4-10.4); MONOCYTES % (AUTO) 9.6 % (2-12); NEUTROPHILS % (AUTO) 83.8 % (42-75); RED BLOOD COUNT 2.42 X10'6 (4.20-5.60); RED CELL DISTRIBUTION WIDTH 17.8 % (11.5-14.5); WHITE BLOOD COUNT 6.6 X10'3 (4.5-11.0)
[2024-01-03 09:13] LABS: ANISOCYTOSIS 1+; NUCLEATED RED BLOOD CELLS 3 /100WBC (0-0); PLATELET ESTIMATE DECREASED; POLYCHROMASIA 1+; TOTAL CELLS COUNTED 100
[2024-01-03 09:14] LABS: POIKILOCYTOSIS 1+; TEAR DROP CELLS 1+
[2024-01-03 11:00] VITALS: BP_SYST 61; BP_SYST 84; BP_SYST 94; BP_DIAS 41; BP_DIAS 42; BP_DIAS 45; PULSE 101; PULSE 83; PULSE 91; RESP 14; TEMP 96.6; O2SAT 96
[2024-01-03 15:30] VITALS: BP_SYST 125; BP_SYST 66; BP_SYST 99; BP_DIAS 34; BP_DIAS 42; BP_DIAS 60; PULSE 103; PULSE 106; PULSE 89
[2024-01-03 18:00] VITALS: BP 126/64; PULSE 86; RESP 18; TEMP 98.8; O2SAT 93
[2024-01-03] MEDS: NPH, human insulin isophane inj. SQ SCH (20:37)
[2024-01-03 22:00] VITALS: BP 142/70; PULSE 83; RESP 16; TEMP 98.1; O2SAT 92
[2024-01-04 06:00] VITALS: BP 140/70; PULSE 84; RESP 16; TEMP 97.7; O2SAT 94
[2024-01-04 06:16] LABS: BASOPHILS % (AUTO) 0.2 % (0-1); EOSINOPHILS % (AUTO) 0.9 % (0-6); HEMATOCRIT 22.8 % (35.0-45.0); HEMOGLOBIN 7.5 g/dl (12.0-16.0); LYMPHOCYTES # (AUTO) 0.4 X10'3 (1.1-4.8); LYMPHOCYTES % (AUTO) 6.3 % (21-51); MEAN CORPUSCULAR HEMOGLOBIN 31.4 PG (27.0-31.0); MEAN CORPUSCULAR HGB CONC 33.1 g/dL (33.0-36.5); MEAN CORPUSCULAR VOLUME 94.9 FL (78-98); MEAN PLATELET VOLUME 7.9 FL (7.4-10.4); MONOCYTES # (AUTO) 0.6 X10'3 (0-0.9); NEUTROPHILS # (AUTO) 4.7 X10'3 (1.8-7.7); NEUTROPHILS % (AUTO) 82.6 % (42-75); PLATELET COUNT 96 X10'3 (140-440); RED CELL DISTRIBUTION WIDTH 17.4 % (11.5-14.5); WHITE BLOOD COUNT 5.7 X10'3 (4.5-11.0)
[2024-01-04 06:42] LABS: ANION GAP 5 (8-16); BLOOD UREA NITROGEN 14 MG/DL (7-18); BUN/CREATININE RATIO 22.6 (10.0-20.0); CALCIUM 7.9 MG/DL (8.5-10.1); CHLORIDE 108 MMOL/L (99-107); CREATININE 0.62 MG/DL (0.40-0.90); GLUCOSE 198 MG/DL (70-104); POTASSIUM 3.8 MMOL/L (3.5-5.1); SODIUM 140 MMOL/L (135-145); TOTAL CARBON DIOXIDE 27.1 MMOL/L (24-32); eCRCL 76 ML/MIN; eGFR > 90 ML/MIN
[2024-01-04 07:17] LABS: NUCLEATED RED BLOOD CELLS 1 /100WBC (0-0); TOTAL CELLS COUNTED 100
[2024-01-04 07:18] LABS: ANISOCYTOSIS 1+; PLATELET ESTIMATE DECREASED; POLYCHROMASIA FEW; TEAR DROP CELLS FEW
[2024-01-04] MEDS: fludrocortisone acetate 0.1mg tablet PO SCH (08:30)
[2024-01-04] MEDS: midodrine 5mg tablet PO SCH (09:20)
[2024-01-04 11:00] VITALS: BP_SYST 108; BP_SYST 134; BP_SYST 89; BP_DIAS 40; BP_DIAS 50; BP_DIAS 66; PULSE 85; PULSE 94; PULSE 96; RESP 20; TEMP 98.4; O2SAT 96
[2024-01-04 18:00] VITALS: BP 118/73; PULSE 84; RESP 16; TEMP 97.9; O2SAT 95
[2024-01-04 20:00] VITALS: RESP 16; O2SAT 95
[2024-01-04 22:00] VITALS: BP 125/54; PULSE 83; RESP 14; TEMP 98.8; O2SAT 95
[2024-01-05] MEDS: VANCOMYCIN LEVEL IV ONE (02:30)
[2024-01-05 03:09] LABS: BASOPHILS % (AUTO) 0.3 % (0-1); EOSINOPHILS # (AUTO) 0.1 X10'3 (0-0.9); EOSINOPHILS % (AUTO) 1.1 % (0-6); HEMATOCRIT 22.2 % (35.0-45.0); HEMOGLOBIN 7.4 g/dl (12.0-16.0); LYMPHOCYTES # (AUTO) 0.4 X10'3 (1.1-4.8); LYMPHOCYTES % (AUTO) 6.7 % (21-51); MEAN CORPUSCULAR HEMOGLOBIN 31.2 PG (27.0-31.0); MEAN CORPUSCULAR HGB CONC 33.3 g/dL (33.0-36.5); MEAN CORPUSCULAR VOLUME 93.5 FL (78-98); MEAN PLATELET VOLUME 8.3 FL (7.4-10.4); MONOCYTES # (AUTO) 0.5 X10'3 (0-0.9); MONOCYTES % (AUTO) 8.4 % (2-12); NEUTROPHILS # (AUTO) 4.6 X10'3 (1.8-7.7); NEUTROPHILS % (AUTO) 83.5 % (42-75); PLATELET COUNT 95 X10'3 (140-440); RED BLOOD COUNT 2.37 X10'6 (4.20-5.60); WHITE BLOOD COUNT 5.5 X10'3 (4.5-11.0)
[2024-01-05 03:19] LABS: ALBUMIN 2.1 G/DL (3.4-5.0); ANION GAP 4 (8-16); BLOOD UREA NITROGEN 11 MG/DL (7-18); BUN/CREATININE RATIO 16.7 (10.0-20.0); CALCIUM 7.9 MG/DL (8.5-10.1); CHLORIDE 108 MMOL/L (99-107); CREATININE 0.66 MG/DL (0.40-0.90); GLUCOSE 172 MG/DL (70-104); SODIUM 140 MMOL/L (135-145); TOTAL CARBON DIOXIDE 28.2 MMOL/L (24-32); VANCOMYCIN,TROUGH 15.9 ug/mL (10.0-20.0); eCRCL 71 ML/MIN; eGFR 89 ML/MIN
[2024-01-05 03:54] LABS: ANISOCYTOSIS 1+; NUCLEATED RED BLOOD CELLS 1 /100WBC (0-0); PLATELET ESTIMATE DECREASED; POLYCHROMASIA 1+; TEAR DROP CELLS 1+; TOTAL CELLS COUNTED 100
[2024-01-05 05:41] VITALS: BP 105/58; PULSE 90; RESP 16; TEMP 98.4; O2SAT 92
[2024-01-05 11:55] VITALS: BP_SYST 105; BP_SYST 83; BP_SYST 85; BP_DIAS 31; BP_DIAS 54; BP_DIAS 55; PULSE 84; PULSE 89; PULSE 91
[2024-01-05 18:00] VITALS: BP 129/68; PULSE 90; RESP 20; TEMP 98; O2SAT 93
[2024-01-05 20:00] VITALS: RESP 20; O2SAT 93
[2024-01-05 22:00] VITALS: BP 119/59; PULSE 83; RESP 14; TEMP 98; O2SAT 95
[2024-01-06] VITALS (10 sets, daily range): BP systolic 95–133; BP diastolic 43–73; PULSE 63–85; RESP 12–18; TEMP 97–99.1; O2SAT 90–98
[2024-01-06 06:19] LABS: BASOPHILS % (AUTO) 0.2 % (0-1); EOSINOPHILS # (AUTO) 0.1 X10'3 (0-0.9); EOSINOPHILS % (AUTO) 1.2 % (0-6); LYMPHOCYTES # (AUTO) 0.3 X10'3 (1.1-4.8); LYMPHOCYTES % (AUTO) 7.2 % (21-51); MEAN CORPUSCULAR HEMOGLOBIN 31.2 PG (27.0-31.0); MEAN CORPUSCULAR HGB CONC 33.2 g/dL (33.0-36.5); MONOCYTES # (AUTO) 0.6 X10'3 (0-0.9); MONOCYTES % (AUTO) 12.7 % (2-12); NEUTROPHILS # (AUTO) 3.6 X10'3 (1.8-7.7); NEUTROPHILS % (AUTO) 78.7 % (42-75); PLATELET COUNT 83 X10'3 (140-440); RED BLOOD COUNT 2.19 X10'6 (4.20-5.60); RED CELL DISTRIBUTION WIDTH 17.3 % (11.5-14.5); WHITE BLOOD COUNT 4.6 X10'3 (4.5-11.0)
[2024-01-06 06:24] LABS: HEMATOCRIT 20.6 % (35.0-45.0); HEMOGLOBIN 6.8 g/dl (12.0-16.0)
[2024-01-06 06:53] LABS: ALBUMIN 1.9 G/DL (3.4-5.0); ANION GAP 3 (8-16); BLOOD UREA NITROGEN 9 MG/DL (7-18); CALCIUM 7.2 MG/DL (8.5-10.1); CHLORIDE 111 MMOL/L (99-107); GLUCOSE 164 MG/DL (70-104); POTASSIUM 3.4 MMOL/L (3.5-5.1); SODIUM 141 MMOL/L (135-145); eCRCL 79 ML/MIN; eGFR > 90 ML/MIN
[2024-01-06 06:58] LABS: NUCLEATED RED BLOOD CELLS 1 /100WBC (0-0); PLATELET ESTIMATE DECREASED; TOTAL CELLS COUNTED 100
[2024-01-06 07:10] LABS: ANISOCYTOSIS 1+; TEAR DROP CELLS 1+; TOXIC GRANULATION 1+
[2024-01-06 07:12] LABS: POLYCHROMASIA 1+
[2024-01-06 07:13] LABS: ELLIPTOCYTES FEW; STOMATOCYTES FEW
[2024-01-06 07:16] LABS: LARGE PLATELETS FEW; SCHISTOCYTES FEW
[2024-01-06] MEDS ORDERED: potassium Cl 20 mEq SR tablet PO PRN (15:15)
[2024-01-06] MEDS ORDERED: potassium Cl 40MEQ/1/2NS 520ml 520 ML IV PRN (15:15)
[2024-01-06] MEDS: potassium Cl 20 mEq SR tablet PO PRN (15:19)
[2024-01-06] MEDS: INSULIN LISPRO 100 UNIT/ML INSULN.PEN MULTI-DOSE SQ SCH (21:19)
[2024-01-06] MEDS: INSULIN LISPRO 100 UNIT/ML INSULN.PEN MULTI-DOSE SQ ONE (23:24)
[2024-01-07 06:31] LABS: BASOPHILS % (AUTO) 0.3 % (0-1); EOSINOPHILS # (AUTO) 0.1 X10'3 (0-0.9); HEMATOCRIT 27.2 % (35.0-45.0); HEMOGLOBIN 9.2 g/dl (12.0-16.0); LYMPHOCYTES # (AUTO) 0.5 X10'3 (1.1-4.8); MEAN CORPUSCULAR HEMOGLOBIN 30.8 PG (27.0-31.0); MEAN CORPUSCULAR HGB CONC 33.8 g/dL (33.0-36.5); MEAN CORPUSCULAR VOLUME 91.1 FL (78-98); MEAN PLATELET VOLUME 8.1 FL (7.4-10.4); MONOCYTES # (AUTO) 0.8 X10'3 (0-0.9); MONOCYTES % (AUTO) 12.3 % (2-12); NEUTROPHILS % (AUTO) 78.4 % (42-75); PLATELET COUNT 88 X10'3 (140-440); RED BLOOD COUNT 2.99 X10'6 (4.20-5.60); RED CELL DISTRIBUTION WIDTH 17.2 % (11.5-14.5); WHITE BLOOD COUNT 6.3 X10'3 (4.5-11.0)
[2024-01-07 06:44] LABS: ALANINE AMINOTRANSFERASE 18 U/L (12-78); ALBUMIN 2.2 G/DL (3.4-5.0); ALBUMIN/GLOBULIN RATIO 0.6 (1.1-1.5); ALKALINE PHOSPHATASE 51 IU/L (46-116); ANION GAP 2 (8-16); ASPARTATE AMINO TRANSFERASE 15 U/L (10-37); BILIRUBIN,TOTAL 0.6 MG/DL (0.1-1.0); BLOOD UREA NITROGEN 13 MG/DL (7-18); BUN/CREATININE RATIO 23.6 (10.0-20.0); CALCIUM 8.2 MG/DL (8.5-10.1); CHLORIDE 107 MMOL/L (99-107); CREATININE 0.55 MG/DL (0.40-0.90); GLUCOSE 175 MG/DL (70-104); POTASSIUM 3.8 MMOL/L (3.5-5.1); SODIUM 138 MMOL/L (135-145); TOTAL CARBON DIOXIDE 28.7 MMOL/L (24-32); TOTAL PROTEIN 5.6 G/DL (6.4-8.2); eCRCL 86 ML/MIN; eGFR > 90 ML/MIN
[2024-01-07 06:52] VITALS: BP 135/72; PULSE 80; RESP 14; TEMP 97.8; O2SAT 94
[2024-01-07] MEDS: INSULIN LISPRO 100 UNIT/ML INSULN.PEN MULTI-DOSE SQ SCH ×2 (07:00→09:00)
[2024-01-07 07:25] VITALS: RESP 16
[2024-01-07 10:00] VITALS: BP_SYST 105; BP_SYST 139; BP_DIAS 53; BP_DIAS 58; PULSE 64; PULSE 74; RESP 14; RESP 16; TEMP 97.3; O2SAT 93; O2SAT 94
[2024-01-07] MEDS: DAPTOmycin inj. 500 MG in normal saline 100ml IV soln 100 ML IV SCH (14:13)
[2024-01-07] MEDS: normal saline 500ml IV soln 500 ML IV PRN (14:30)
== END 2024-01-07 17:42 | disposition home or self-care (01) | DRG 871 ==
LOC: ER 20:48 → ED HOLD 12-28 00:39 → SUR 3N 12-28 03:57
PROVIDERS: ADMIT Internal Medicine Pulmonary Disease; ATTEND Internal Medicine
PROC: BW211ZZ Computerized Tomography (CT Scan) of Abdomen and Pelvis using Low Osmolar Contrast (ICD-10-PCS; 2023-12-30)
PROC: 05HB33Z Insertion of Infusion Device into Right Basilic Vein, Percutaneous Approach (ICD-10-PCS; 2024-01-03)
PROC: 30233N1 Transfusion of Nonautologous Red Blood Cells into Peripheral Vein, Percutaneous Approach (ICD-10-PCS; principal; 2024-01-06)
DX: A41.02 Sepsis due to Methicillin resistant Staphylococcus aureus (principal); R65.21 Severe sepsis with septic shock; E87.1 Hypo-osmolality and hyponatremia; M31.6 Other giant cell arteritis; F32.A Depression, unspecified; F41.9 Anxiety disorder, unspecified; Z20.822 Contact with and (suspected) exposure to COVID-19; G89.29 Other chronic pain; E11.65 Type 2 diabetes mellitus with hyperglycemia; I10 Essential (primary) hypertension; E78.5 Hyperlipidemia, unspecified; J44.9 Chronic obstructive pulmonary disease, unspecified; T66.XXXA Radiation sickness, unspecified, initial encounter; C52 Malignant neoplasm of vagina; L89.159 Pressure ulcer of sacral region, unspecified stage; D64.9 Anemia, unspecified; I95.1 Orthostatic hypotension; Y83.8 Other surgical procedures as the cause of abnormal reaction of the patient, or of later complication, without mention of misadventure at the time of the procedure; Y82.8 Other medical devices associated with adverse incidents; E87.6 Hypokalemia; S31.000A Unspecified open wound of lower back and pelvis without penetration into retroperitoneum, initial encounter; Z88.1 Allergy status to other antibiotic agents; Z92.3 Personal history of irradiation; Z92.21 Personal history of antineoplastic chemotherapy; Z88.2 Allergy status to sulfonamides; Z79.4 Long term (current) use of insulin; Z79.899 Other long term (current) drug therapy; X58.XXXA Exposure to other specified factors, initial encounter; Y93.89 Activity, other specified; Y92.89 Other specified places as the place of occurrence of the external cause; Y99.8 Other external cause status
CPT/HCPCS: 36410; 36415; 36430; 70450; 70551; 71045; 74176; 74177; 76942; 80048; 80053; 80202; 81001; 82948; 83036; 83540; 83550; 83605; 83735; 84145; 84484; 85007; 85008; 85025; 85651; 86140; 86885; 86900; 86901; 86920; 87040; 87077; 87081; 87186; 87324; 87449; 87502; 87503; 87811; 93005; 93306; 97116; 97161; 97530; 97535; 99285; A4333; A4353; A4615; A6212; A6213; A6250; A6258; A6449; C1751; G0378; J0878; J1644; J1815; J2543; J2930; J3370; J3490; J7030; J7040; P9016; Q9967